=== PATIENT | male | born 1945 | race Caucasian/White ===

== ENCOUNTER 2016-12-14 21:48 | Emergency (ER) | payer OTHER, BC ==
--- NOTE | 2016-12-14 21:51 | PDOC ---
History of Present Illness - General History Source: Patient Exam Limitations: No Limitations - History of Present Illness Initial Comments: 12/14/16 21:56 The patient is a 71 year old male, with no pertinent significant past medical history who presents to the emergency department s/p mechanical fall. He reports falling and slipping just prior to ED arrival, sustaining superficial lacerations to his chin. He denies any LOC. He denies being up-to-date on his tetanus shot. He denies any complaints of pain. He denies any other injuries at this time. He denies any recent fevers, chills, headache or dizziness. He denies any recent nausea, vomit, diarrhea or constipation. PAST MEDICAL HISTORY: See HPI PAST SURGICAL HISTORY: No significant history. FAMILY HISTORY: No pertinent history. SOCIAL HISTORY: Patient lives with family and is employed. MEDICATIONS: Reviewed. ALLERGIES: As per nursing notes. ROS General: No fevers or chills, no weakness, no weight loss HEENT: +chin laceration. No change in vision. No sore throat. No ear pain CardioVascular: No chest pain or shortness of breath Respiratory:No cough, or wheezing. Gastrointestinal: No nausea, vomiting, diarrhea or constipation. No rectal bleeding Genitourinary: No dysuria, hematuria, or frequency Musculoskeletal: No joint or muscle pain or swelling Neurologic: No headache, vertigo, dizziness or loss of consciousness Psychiatric: No depression Skin: No rashes or easy bruising Endocrine: no increased thirst or abnormal weight change Allergic: no skin or latex allergy All other systems reviewed and normal GENERAL: The patient is awake, alert, and fully oriented, in no acute distress. HEAD: There is a superficial laceration of the submental area approximately 1cm in length. No active bleeding. No bony tenderness of the mandible. No C- spine tenderness. EYES: Pupils equal, round and reactive to light, extraocular movements intact, sclera anicteric, conjunctiva clear. EXTREMITIES: Normal range of motion, no edema. NEUROLOGICAL: Normal speech, normal gait. PSYCH: Normal mood, normal affect. SKIN: Warm, Dry, normal turgor, no rashes or lesions noted. <Shan Barrios - Last Filed: 12/14/16 21:56> - General History Source: Patient Exam Limitations: No Limitations - History of Present Illness Initial Comments: 12/14/16 21:57 A portion of this note was documented by scribe services under my direction. I have reviewed the details of the note, within reason, and agree with the documentation. The case summary and management plan written by me. Procedure note laceration repair Laceration was cleaned with peroxide and closed with Dermabond Patient tolerated well Assessment and plan: This is a 71-year-old male who comes in after slipping on the ice falling striking his chin and resulting in a salt [place] superficial laceration. Patient denies any other injuries however his tetanus was not up-to- date so it was updated here in the emergency room. Patient refused to a CT scan. Patient was explained the need for CT scan given his age and the fact that he fell and hit his head however patient is refusing a CT scan patient was informed that if anything changes or he is concerned he should come back immediately and get the CAT scan Patient discharged home with his nephew who will stay with him tonight and check on him during the night to make sure he is okay nephew was also given head injury discharge instructions <Brad Alves I - Last Filed: 12/14/16 22:00> - General Chief Complaint: Laceration Stated Complaint: S/P FALL CHIN LAC Time Seen by Provider: 12/14/16 21:50 Past History <Shan Barrios - Last Filed: 12/14/16 21:56> <Brad Alves I - Last Filed: 12/14/16 22:00> - Past Medical History Allergies/Adverse Reactions: Allergies Allergy/AdvReac Type Severity Reaction Status Date / Time No Known Allergies Allergy Unverified 12/14/16 21:49 Home Medications: Ambulatory Orders Aspirin [ASA -] 81 mg PO DAILY 12/14/16 *Physical Exam - Vital Signs Last Vital Signs Temp Pulse Resp BP Pulse Ox 97.7 F 90 14 130/83 96 12/14/16 21:51 12/14/16 21:51 12/14/16 21:51 12/14/16 21:51 12/14/16 21:51 <Shan Barrios - Last Filed: 12/14/16 21:56> *DC/Admit/Observation/Transfer - Attestations Scribe Attestion: 12/14/16 21:55 Documentation prepared by Shan Barrios, acting as certified medical coder for Brad Alves MD. <Shan Barrios - Last Filed: 12/14/16 21:56> - Discharge Dispostion Admit: No <Brad Alves I - Last Filed: 12/14/16 22:00> Diagnosis at time of Disposition: Chin laceration - Discharge Dispostion Disposition: HOME Condition at time of disposition: Good - Patient Instructions Printed Discharge Instructions: DI for Laceration Repair With Dermabond, DI for Closed Head Injury Additional Instructions: Someone should check on you once tonight during the night. You should be arousable to your Normal level of arousability for that time of the night. If you have been vomiting, have had a seizure, or you are unable to be aroused or the person checking on you is concerned that there has been a change in your mental status they should call 911 and have you brought back to the emergency department. You can take Tylenol as needed for pain. Return to the emergency department immediately with ANY new, persistent or worsening symptoms. Continue any medications as previously prescribed by your physician. You should follow up with your primary doctor as soon as possible regarding today's emergency department visit. . Please make sure your doctor reviews the results of your emergency evaluation. Thank you for coming to the Emergency Department today for your care. It was a pleasure to see you today. Please note that your evaluation is INCOMPLETE until you follow-up with your doctor.
[2016-12-14 21:54] VITALS: BP 130/83; PULSE 90; TEMP 97.7; BMI 28.7
[2016-12-14] MEDS ORDERED: DIPHTH,PERTUSS(ACELL),TET 0.5 ML DISP.SYRIN IM ONE (21:55)
== END 2016-12-14 22:01 | disposition home or self-care (01) ==
LOC: FER 21:48
PROC: 0HQ1XZZ Repair Face Skin, External Approach (ICD-10-PCS; principal; 2016-12-14)
PROC: 3E0234Z Introduction of Serum, Toxoid and Vaccine into Muscle, Percutaneous Approach (ICD-10-PCS; 2016-12-14)
DX: S01.81XA Laceration without foreign body of other part of head, initial encounter (principal); W00.0XXA Fall on same level due to ice and snow, initial encounter; Y93.89 Activity, other specified; Y92.410 Unspecified street and highway as the place of occurrence of the external cause
CPT/HCPCS: 90715; 99283-25

== ENCOUNTER 2022-04-14 04:24 | Day surgery (SDC) | payer OTHER, BC ==
[2022-04-11 16:10] VITALS: BMI 31.1
[2022-04-14 11:54] VITALS: TEMP 97
[2022-04-14 12:40] VITALS: BP 126/79; PULSE 89
== END 2022-04-14 12:58 | disposition home or self-care (01) ==
LOC: JASU-ENDO 04:24
PROVIDERS: ATTEND Internal Medicine Gastroenterology
PROC: 0DJD8ZZ Inspection of Lower Intestinal Tract, Via Natural or Artificial Opening Endoscopic (ICD-10-PCS; principal; 2022-04-14 11:15)
DX: Z12.11 Encounter for screening for malignant neoplasm of colon (principal); K57.30 Diverticulosis of large intestine without perforation or abscess without bleeding; Z80.0 Family history of malignant neoplasm of digestive organs

== ENCOUNTER 2024-06-19 07:03 | Day surgery (SDC) | payer OTHER, BC ==
[2024-06-13 14:01] VITALS: BMI 30.1
[2024-06-19] MEDS ORDERED: LIDOCAINE 1% P/F 10 MG/ML VIAL ONE (07:24)
[2024-06-19] MEDS ORDERED: TETRACAINE 0.5% OPHTH SOLN 2 ML BOTTLE ONE (07:24)
[2024-06-19] MEDS ORDERED: BSS (NA/CA/MG/K) BALANCED SALT SOLUTION OPHTH SOLN 15 ML BOTTLE ONE (07:24)
[2024-06-19] MEDS ORDERED: EPINEPHrine/PF 1 MG/1 ML (1:1,000) AMPULE ONE (07:24)
[2024-06-19] MEDS ORDERED: CARBACHOL 0.01% INTRA-OCULAR 1.5 ML VIAL ONE (07:25)
[2024-06-19] MEDS ORDERED: NEO/POLYMYX B SULF/DEXAMETH OPHTHALMIC 5ML BOTTLE ONE (07:25)
[2024-06-19] MEDS: CYCLOPENTOLATE 2% OPHTH SOLN 2 ML BOTTLE ONE (07:35)
[2024-06-19] MEDS: CIPROFLOXACIN 0.3% EYE DROPS 5 ML BOTTLE ONE (07:35)
[2024-06-19] MEDS: PHENYLEPHRINE 2.5% OPTHALMIC DROP 2ML BOTTLE ONE (07:35)
[2024-06-19] MEDS: TROPICAMIDE 1% OPHTH SOLN 15 ML BOTTLE ONE (07:35)
[2024-06-19] MEDS ORDERED: MIDAZOLAM HCL 2 MG/2 ML SINGLE DOSE VIAL ONE (08:22)
[2024-06-19 09:46] VITALS: RESP 18; TEMP 98
[2024-06-19 09:48] VITALS: BP 135/75; PULSE 69
== END 2024-06-19 09:50 | disposition home or self-care (01) ==
LOC: FASU 07:03
PROVIDERS: ATTEND Ophthalmology
PROC: 08RJ3JZ Replacement of Right Lens with Synthetic Substitute, Percutaneous Approach (ICD-10-PCS; principal; 2024-06-19 09:03)
DX: H26.8 Other specified cataract (principal)
CPT/HCPCS: 66984; V2632

== ENCOUNTER 2024-07-10 06:24 | Day surgery (SDC) | payer OTHER, BC ==
[2024-07-04 10:13] VITALS: BMI 30.1
[2024-07-10] MEDS ORDERED: TROPICAMIDE 1% OPHTH SOLN 15 ML BOTTLE ONE (06:44)
[2024-07-10] MEDS ORDERED: CYCLOPENTOLATE 2% OPHTH SOLN 2 ML BOTTLE ONE (06:44)
[2024-07-10] MEDS ORDERED: CIPROFLOXACIN 0.3% EYE DROPS 5 ML BOTTLE ONE (06:44)
[2024-07-10] MEDS ORDERED: PHENYLEPHRINE 2.5% OPTHALMIC DROP 2ML BOTTLE ONE (06:45)
[2024-07-10] MEDS: TROPICAMIDE 1% OPHTH SOLN 15 ML BOTTLE OS SCH (07:00)
[2024-07-10] MEDS: CIPROFLOXACIN 0.3% EYE DROPS 5 ML BOTTLE OS SCH (07:00)
[2024-07-10] MEDS: CYCLOPENTOLATE 2% OPHTH SOLN 2 ML BOTTLE OS SCH (07:00)
[2024-07-10] MEDS: PHENYLEPHRINE 2.5% OPTHALMIC DROP 2ML BOTTLE OS SCH (07:00)
[2024-07-10] MEDS ORDERED: EPINEPHrine/PF 1 MG/1 ML (1:1,000) AMPULE ONE (07:16)
[2024-07-10] MEDS ORDERED: BSS (NA/CA/MG/K) BALANCED SALT SOLUTION OPHTH SOLN 15 ML BOTTLE ONE (07:17)
[2024-07-10] MEDS ORDERED: CARBACHOL 0.01% INTRA-OCULAR 1.5 ML VIAL ONE (07:17)
[2024-07-10] MEDS ORDERED: TETRACAINE 0.5% OPHTH SOLN 2 ML BOTTLE ONE (07:17)
[2024-07-10] MEDS ORDERED: LIDOCAINE 1% P/F 10 MG/ML VIAL ONE (07:17)
[2024-07-10] MEDS ORDERED: NEO/POLYMYX B SULF/DEXAMETH OPHTHALMIC 5ML BOTTLE ONE (07:17)
[2024-07-10] MEDS ORDERED: MIDAZOLAM HCL 2 MG/2 ML SINGLE DOSE VIAL ONE (07:37)
[2024-07-10 08:59] VITALS: RESP 18; TEMP 97.7
[2024-07-10 09:17] VITALS: BP 118/71; PULSE 60
== END 2024-07-10 09:34 | disposition home or self-care (01) ==
LOC: FASU 06:24
PROVIDERS: ATTEND Ophthalmology
PROC: 08RK3JZ Replacement of Left Lens with Synthetic Substitute, Percutaneous Approach (ICD-10-PCS; principal; 2024-07-10 08:25)
DX: H26.8 Other specified cataract (principal)
CPT/HCPCS: 66984; V2632